=== PATIENT | female | born 1955 | race Caucasian/White ===

== ENCOUNTER 2018-12-18 12:48 | Emergency (ER) | payer BC ==
[2018-12-18] MEDS: BELLADONNA/PHENOBARBITAL TAB PO (14:58)
[2018-12-18] MEDS: LIDOCAINE/MYLANTA 40 ML BTL PO (14:58)
[2018-12-18] MEDS: KETOROLAC 15 MG INJ IV (14:58)
== END 2018-12-18 15:41 | disposition home or self-care (01) ==
LOC: E/R 12:48
DX: R07.82 Intercostal pain (principal); I10 Essential (primary) hypertension; E11.9 Type 2 diabetes mellitus without complications; E66.9 Obesity, unspecified; Z68.41 Body mass index [BMI] 40.0-44.9, adult; Z79.4 Long term (current) use of insulin; Z79.82 Long term (current) use of aspirin
CPT/HCPCS: 36415; 71045; 80053; 83690; 84484; 85025; 93005; 96374; 99284-25